=== PATIENT | female | born 1940 | race African-American/Black ===

== ENCOUNTER 2017-10-30 09:19 | Emergency (ER) | payer OTHER ==
[~2017-10-30] VITALS: Ht 160 cm; Wt 72.6 kg
[~2017-10-30 09:19] MED LIST: COUMADIN3 MG; COZAAR25 MG; GLUCOPHAGE XR500 MG; GLUCOTROL10 MG; LANOXIN EL0.05 MG/ML
== END 2017-10-30 11:34 | disposition home or self-care (01) ==
LOC: ER 09:19
DX: S30.0XXA Contusion of lower back and pelvis, initial encounter (principal); W18.39XA Other fall on same level, initial encounter; Y93.89 Activity, other specified; Y92.26 Movie house or cinema as the place of occurrence of the external cause; Y99.8 Other external cause status

== ENCOUNTER 2019-04-06 21:48 | Inpatient (IN) | payer OTHER ==
[~2019-04-06] VITALS: Ht 160 cm; Wt 77.1 kg
[2019-06-09] MEDS ORDERED: AMIODARONE HCL200 MG NGT (15:10)
[2019-06-09] MEDS ORDERED: ELIQUIS5 MG PO (15:10)
[2019-06-09] MEDS ORDERED: RISPERIDONE0.5 MG PO (15:11)
[2019-06-09] MEDS ORDERED: METOPROLOL TART50 MG PO (15:11)
[2019-06-09] MEDS ORDERED: LISINOPRIL20 MG PO (15:11)
[2019-06-09] MEDS ORDERED: SERTRALINE HCL50 MG PO (15:12)
[2019-06-09] MEDS ORDERED: BUDESONIDE0.5 MG/2 M IH (15:12)
[2019-06-09] MEDS ORDERED: FUROSEMIDE20 MG PO (15:12)
[2019-06-09] MEDS ORDERED: PANTOPRAZOLE SO40 MG PO (15:13)
[2019-06-09] MEDS ORDERED: INTESTINEX680 M1 PO (15:13)
[2019-06-09] MEDS ORDERED: CARAFATE1 GM PO (15:13)
[2019-06-09] MEDS ORDERED: GLUCOPHAGE XR500 MG PO (15:14)
[2019-06-09] MEDS ORDERED: LIDODERM1 EACH TOP (15:15)
[2019-06-09] MEDS ORDERED: PRE PROTEIN1 EACH PO (15:16)
[2019-06-09] MEDS ORDERED: INTEGRA PLUS C1 EACH PO (15:17)
[2019-06-09] MEDS ORDERED: HYPER-SAL4 ML IH (15:17)
== END 2019-06-09 18:15 | DRG 4 ==
LOC: ER 21:48 → ICU 04-07 08:00 → ICU-2 04-07 08:00 → ICU 04-07 22:19 → MEDJ 05-23 20:40
PROVIDERS: Otolaryngology; ADMIT Internal Medicine
PROC: 30233N1 Transfusion of Nonautologous Red Blood Cells into Peripheral Vein, Percutaneous Approach (ICD-10-PCS; 2019-04-07)
PROC: 0T9B70Z Drainage of Bladder with Drainage Device, Via Natural or Artificial Opening (ICD-10-PCS; 2019-04-07)
PROC: BW21ZZZ Computerized Tomography (CT Scan) of Abdomen and Pelvis (ICD-10-PCS; 2019-04-07)
PROC: 4A033R1 Measurement of Arterial Saturation, Peripheral, Percutaneous Approach (ICD-10-PCS; 2019-04-08)
PROC: 0BH17EZ Insertion of Endotracheal Airway into Trachea, Via Natural or Artificial Opening (ICD-10-PCS; 2019-04-08)
PROC: 5A1945Z Respiratory Ventilation, 24-96 Consecutive Hours (ICD-10-PCS; 2019-04-08)
PROC: 3E0G76Z Introduction of Nutritional Substance into Upper GI, Via Natural or Artificial Opening (ICD-10-PCS; 2019-04-10)
PROC: 30233R1 Transfusion of Nonautologous Platelets into Peripheral Vein, Percutaneous Approach (ICD-10-PCS; 2019-04-10)
PROC: 0DH67UZ Insertion of Feeding Device into Stomach, Via Natural or Artificial Opening (ICD-10-PCS; 2019-04-10)
PROC: 3E0436Z Introduction of Nutritional Substance into Central Vein, Percutaneous Approach (ICD-10-PCS; 2019-04-10)
PROC: 02HV33Z Insertion of Infusion Device into Superior Vena Cava, Percutaneous Approach (ICD-10-PCS; 2019-04-10)
PROC: 0DJ08ZZ Inspection of Upper Intestinal Tract, Via Natural or Artificial Opening Endoscopic (ICD-10-PCS; 2019-04-12)
PROC: 0B110F4 Bypass Trachea to Cutaneous with Tracheostomy Device, Open Approach (ICD-10-PCS; principal; 2019-04-25 17:00)
PROC: 8E0ZXY6 Isolation (ICD-10-PCS; 2019-04-28)
PROC: CD171ZZ Planar Nuclear Medicine Imaging of Gastrointestinal Tract using Technetium 99m (Tc-99m) (ICD-10-PCS; 2019-05-03)
PROC: B54PZZZ Ultrasonography of Bilateral Upper Extremity Veins (ICD-10-PCS; 2019-05-04)
PROC: 0DJ08ZZ Inspection of Upper Intestinal Tract, Via Natural or Artificial Opening Endoscopic (ICD-10-PCS; 2019-05-05)
PROC: B246ZZZ Ultrasonography of Right and Left Heart (ICD-10-PCS; 2019-05-08)
PROC: BB24ZZZ Computerized Tomography (CT Scan) of Bilateral Lungs (ICD-10-PCS; 2019-05-09)
PROC: 0W9930Z Drainage of Right Pleural Cavity with Drainage Device, Percutaneous Approach (ICD-10-PCS; 2019-05-11)
PROC: 4A12X4Z Monitoring of Cardiac Electrical Activity, External Approach (ICD-10-PCS; 2019-05-23)
DX: K26.0 Acute duodenal ulcer with hemorrhage (principal); R57.1 Hypovolemic shock; J96.01 Acute respiratory failure with hypoxia; I50.41 Acute combined systolic (congestive) and diastolic (congestive) heart failure; I63.413 Cerebral infarction due to embolism of bilateral middle cerebral arteries; D62 Acute posthemorrhagic anemia; E87.2 Acidosis; N17.8 Other acute kidney failure; E44.0 Moderate protein-calorie malnutrition; E87.0 Hyperosmolality and hypernatremia; J98.11 Atelectasis; J90 Pleural effusion, not elsewhere classified; I30.8 Other forms of acute pericarditis; B37.49 Other urogenital candidiasis; I48.0 Paroxysmal atrial fibrillation; K92.1 Melena; K26.3 Acute duodenal ulcer without hemorrhage or perforation; J32.0 Chronic maxillary sinusitis; K40.20 Bilateral inguinal hernia, without obstruction or gangrene, not specified as recurrent; I08.0 Rheumatic disorders of both mitral and aortic valves; I80.8 Phlebitis and thrombophlebitis of other sites; D69.59 Other secondary thrombocytopenia; I11.0 Hypertensive heart disease with heart failure; E83.52 Hypercalcemia; E87.6 Hypokalemia; E11.65 Type 2 diabetes mellitus with hyperglycemia; R29.702 NIHSS score 2; R49.1 Aphonia; N39.8 Other specified disorders of urinary system; R31.0 Gross hematuria; Z79.01 Long term (current) use of anticoagulants; Z79.4 Long term (current) use of insulin; Z99.81 Dependence on supplemental oxygen; Z93.0 Tracheostomy status

== ENCOUNTER 2019-12-28 13:05 | Inpatient (IN) | payer OTHER ==
[~2019-12-28] VITALS: Ht 157.5 cm; Wt 61.2 kg
[~2019-12-28 13:05] MED LIST changes: +AMIODARONE HCL200 MG NGT; +BUDESONIDE0.5 MG/2 M IH; +CARAFATE1 GM PO; +ELIQUIS5 MG PO; +FUROSEMIDE20 MG PO; +GLUCOPHAGE XR500 MG PO; +HYPER-SAL4 ML IH; +INTEGRA PLUS C1 EACH PO; +INTESTINEX680 M1 PO; +LIDODERM1 EACH TOP; +LISINOPRIL20 MG PO; +METOPROLOL TART50 MG PO; +PANTOPRAZOLE SO40 MG PO; +PRE PROTEIN1 EACH PO; +RISPERIDONE0.5 MG PO; +SERTRALINE HCL50 MG PO
[2019-12-28] MEDS ORDERED: FEOSOL325 MG (13:42)
[2019-12-28] MEDS ORDERED: SYNTHROID50 MCG (13:44)
[2019-12-28] MEDS ORDERED: FOLIC ACID0.8 M1 (13:45)
[2020-01-24] MEDS ORDERED: PROTEINEX-18 LI30 ML PO (15:03)
[2020-01-24] MEDS ORDERED: FEOSOL325 MG PO (15:03)
[2020-01-24] MEDS ORDERED: AMIODARONE HCL200 MG PO (15:03)
[2020-01-24] MEDS ORDERED: GLUCOPHAGE XR500 MG PO (15:03)
[2020-01-24] MEDS ORDERED: LEVOTHYROXINE50 MCG PO (15:03)
[2020-01-24] MEDS ORDERED: METOPROLOL TART50 MG PO (15:03)
[2020-01-24] MEDS ORDERED: PROTONIX40 MG PO (15:03)
[2020-01-24] MEDS ORDERED: INTESTINEX680 M1 PO (15:03)
[2020-01-24] MEDS ORDERED: ELIQUIS5 MG PO (15:03)
[2020-01-24] MEDS ORDERED: FLUCONAZOLE100 MG PO (15:03)
[2020-01-24] MEDS ORDERED: FOLIC ACID0.8 M1 PO (15:03)
[2020-01-24] MEDS ORDERED: LISINOPRIL40 MG PO (15:03)
== END 2020-01-24 20:19 | DRG 464 ==
LOC: ER 13:05 → SURH 20:39 → SEC-K 20:39 → SURH 22:03
PROVIDERS: ADMIT Internal Medicine; ATTEND Internal Medicine
PROC: 8E0ZXY6 Isolation (ICD-10-PCS; 2019-12-28)
PROC: 05HY33Z Insertion of Infusion Device into Upper Vein, Percutaneous Approach (ICD-10-PCS; 2020-01-01)
PROC: 30233N1 Transfusion of Nonautologous Red Blood Cells into Peripheral Vein, Percutaneous Approach (ICD-10-PCS; 2020-01-01)
PROC: 0JB70ZZ Excision of Back Subcutaneous Tissue and Fascia, Open Approach (ICD-10-PCS; principal; 2020-01-03)
PROC: 0QB10ZZ Excision of Sacrum, Open Approach (ICD-10-PCS; 2020-01-03)
PROC: 2W15X6Z Compression of Back using Pressure Dressing (ICD-10-PCS; 2020-01-11)
PROC: 0JB70ZZ Excision of Back Subcutaneous Tissue and Fascia, Open Approach (ICD-10-PCS; 2020-01-16)
DX: M46.28 Osteomyelitis of vertebra, sacral and sacrococcygeal region (principal); N39.0 Urinary tract infection, site not specified; E86.0 Dehydration; E11.65 Type 2 diabetes mellitus with hyperglycemia; E03.8 Other specified hypothyroidism; L89.159 Pressure ulcer of sacral region, unspecified stage; B96.4 Proteus (mirabilis) (morganii) as the cause of diseases classified elsewhere; B95.2 Enterococcus as the cause of diseases classified elsewhere; B96.1 Klebsiella pneumoniae [K. pneumoniae] as the cause of diseases classified elsewhere; E88.09 Other disorders of plasma-protein metabolism, not elsewhere classified; B96.20 Unspecified Escherichia coli [E. coli] as the cause of diseases classified elsewhere; I10 Essential (primary) hypertension; D63.8 Anemia in other chronic diseases classified elsewhere; I48.0 Paroxysmal atrial fibrillation; Z74.01 Bed confinement status

== ENCOUNTER 2020-02-10 12:45 | Inpatient (IN) | payer OTHER ==
[~2020-02-10] VITALS: Ht 175.3 cm; Wt 77.1 kg
[~2020-02-10 12:45] MED LIST changes: +AMIODARONE HCL200 MG PO; +FEOSOL325 MG; +FEOSOL325 MG PO; +FLUCONAZOLE100 MG PO; +FOLIC ACID0.8 M1; +FOLIC ACID0.8 M1 PO; +LEVOTHYROXINE50 MCG PO; +LISINOPRIL40 MG PO; +PROTEINEX-18 LI30 ML PO; +PROTONIX40 MG PO; +SYNTHROID50 MCG
[2020-02-12] MEDS ORDERED: ZESTRIL20 MG (07:53)
[2020-02-12] MEDS ORDERED: FEOSOL325 MG PO (07:53)
[2020-02-12] MEDS ORDERED: SERTRALINE HCL50 MG PO (07:54)
[2020-02-12] MEDS ORDERED: ATORVASTATIN CA20 MG PO (07:54)
[2020-02-12] MEDS ORDERED: AMLODIPINE BESYL5 MG PO (07:54)
[2020-02-22] MEDS ORDERED: LEVOTHYROXINE50 MCG PO (19:13)
[2020-02-22] MEDS ORDERED: METOPROLOL TART50 MG PO (19:13)
[2020-02-22] MEDS ORDERED: PROTEINEX-18 LI30 ML PO (19:13)
[2020-02-22] MEDS ORDERED: AMIODARONE HCL200 MG PO (19:13)
[2020-02-22] MEDS ORDERED: LISINOPRIL20 MG PO (19:13)
[2020-02-22] MEDS ORDERED: FLAGYL500MG PO (19:13)
== END 2020-02-23 16:49 | disposition home or self-care (01) | DRG 640 ==
LOC: ER 12:45 → MEDJ 22:19 → SURH 02-14 13:38
PROVIDERS: ADMIT Internal Medicine; ATTEND Internal Medicine
PROC: 3E0336Z Introduction of Nutritional Substance into Peripheral Vein, Percutaneous Approach (ICD-10-PCS; principal; 2020-02-10)
PROC: 8E0ZXY6 Isolation (ICD-10-PCS; 2020-02-10)
PROC: BB24ZZZ Computerized Tomography (CT Scan) of Bilateral Lungs (ICD-10-PCS; 2020-02-10)
PROC: 05HB33Z Insertion of Infusion Device into Right Basilic Vein, Percutaneous Approach (ICD-10-PCS; 2020-02-13)
PROC: 0DH63UZ Insertion of Feeding Device into Stomach, Percutaneous Approach (ICD-10-PCS; 2020-02-20)
PROC: 3E0G76Z Introduction of Nutritional Substance into Upper GI, Via Natural or Artificial Opening (ICD-10-PCS; 2020-02-20)
DX: E87.0 Hyperosmolality and hypernatremia (principal); R57.1 Hypovolemic shock; L89.153 Pressure ulcer of sacral region, stage 3; M46.28 Osteomyelitis of vertebra, sacral and sacrococcygeal region; Z74.01 Bed confinement status; E11.65 Type 2 diabetes mellitus with hyperglycemia; E87.6 Hypokalemia; E83.52 Hypercalcemia; E78.00 Pure hypercholesterolemia, unspecified; R13.19 Other dysphagia; B96.89 Other specified bacterial agents as the cause of diseases classified elsewhere

== ENCOUNTER 2020-03-12 13:24 | Inpatient (IN) | payer OTHER ==
[~2020-03-12] VITALS: Ht 160 cm; Wt 59.0 kg
[~2020-03-12 13:24] MED LIST changes: +AMLODIPINE BESYL5 MG PO; +ATORVASTATIN CA20 MG PO; +FLAGYL500MG PO; +ZESTRIL20 MG
== END 2020-03-13 04:30 | disposition expired | DRG 208 ==
LOC: ER 13:24 → MEDI 17:42 → SEC-K 17:42 → MEDI 03-13 00:58
PROVIDERS: ADMIT Internal Medicine; ATTEND Internal Medicine
PROC: 4A12X4Z Monitoring of Cardiac Electrical Activity, External Approach (ICD-10-PCS; 2020-03-12)
PROC: 3E0F7SF Introduction of Other Gas into Respiratory Tract, Via Natural or Artificial Opening (ICD-10-PCS; 2020-03-12)
PROC: 0BH17EZ Insertion of Endotracheal Airway into Trachea, Via Natural or Artificial Opening (ICD-10-PCS; principal; 2020-03-13)
PROC: 5A1935Z Respiratory Ventilation, Less than 24 Consecutive Hours (ICD-10-PCS; 2020-03-13)
DX: J18.9 Pneumonia, unspecified organism (principal); J96.00 Acute respiratory failure, unspecified whether with hypoxia or hypercapnia; N17.9 Acute kidney failure, unspecified; J98.11 Atelectasis; G30.9 Alzheimer's disease, unspecified; F02.80 Dementia in other diseases classified elsewhere, unspecified severity, without behavioral disturbance, psychotic disturbance, mood disturbance, and anxiety; I50.9 Heart failure, unspecified; E11.9 Type 2 diabetes mellitus without complications; I11.0 Hypertensive heart disease with heart failure; Z20.828 Contact with and (suspected) exposure to other viral communicable diseases; I48.91 Unspecified atrial fibrillation; E86.0 Dehydration; E87.5 Hyperkalemia